=== PATIENT | female | born 1955 | race Asian ===

== ENCOUNTER → 2020-05-03 14:00 | Outpatient (CLI) | payer MEDICARE, OTHER, SELFPAY ==
[2020-05-04 09:43] LABS: COVID19 Sendout Not Detected (Not Detect)
== END ==
PROVIDERS: Visit Provider Nurse Practitioner
DX: Z11.59 Encounter for screening for other viral diseases (principal)
CPT/HCPCS: 87635

== ENCOUNTER 2020-05-06 06:10 | Day surgery (SDC) | payer MEDICARE, OTHER, SELFPAY ==
[2020-05-04 12:54] VITALS: BMI 24.0
[2020-05-06] VITALS (9 sets, daily range): BP systolic 101–135; BP diastolic 54–81; PULSE 67–83; RESP 14–18; TEMP 36.1–37.2; O2SAT 96–100; BMI 23.3
[2020-05-06] MEDS: LACTATED RINGERS 1,000 ML 100 ML IV (07:09)
--- NOTE | 2020-05-06 07:30 | PM.PREOP ---
Pre-operative Note COVID-19 COVID-19 status: Negative Interval Note History & Physical reviewed/Exam performed by Physician: Yes Changes to H&P: No
--- NOTE | 2020-05-06 07:31 | PM.OP.1 ---
Operative Date/Time/Diagnoses Date of procedure: 05/06/20 Time of procedure: 07:31 Pre-op diagnosis: Left hallux abductovalgus with painful bunion Post-op diagnosis: same Procedure & Clinicians Procedure: Left first metatarsophalangeal joint arthrodesis Same procedure as scheduled: Yes Indications: Painful hypermobile left great toe joint with bunion. Conservative measures failed to alleviate her pain and she wished to have surgical intervention at this time. We spoke of the alternatives, risks, potential complications, and expected outcomes. Consent was signed, no contraindications to the procedure at this time. Surgeon: Marilee Farris Click Yes if Unassisted: Yes Anesthesia Type: Spinal and Local Operative Notes Closure Type: primary Specimen(s): none sent Applied: implant(s) ([place] 5 degree 1st MTP plate, 4.0 cannulated screw, 2.7 x 4 screws (1 non-locking, 3 locking)) Estimated Blood Loss (mL): 20 Blood products transfused: none Tourniquet time (min): 58 Procedure in detail: The patient was brought to the operating room and placed on the operating table seated. Anesthesia rendered a spinal anesthesia. She was then placed in the supine position. A tourniquet was placed about the patient's left thigh. After induction of sedation, the foot and ankle were prepped and draped in the usual aseptic manner. The tourniquet was inflated. Incision was made over the dorsal aspect of the left 1st metatarsophalangeal joint. The incision was deepened through subcutaneous tissues being careful to identify and retract all vital neurovascular structures. All bleeders were cauterized and ligated necessary. The capsule was opened to an enlarged medial eminence of the 1st metatarsal head. A saw was used to resect the medial eminence enlargement as well as some of the more prominent areas of spurring at the 1st metatarsophalangeal joint. The joint showed loss of the articular cartilage on the plantar medial 1st metatarsal head near the sesamoid area. A guidewire was placed in the 1st metatarsal head and a reamer was used to resect the cartilage from the 1st metatarsal head and prepare the joint. The same procedure was performed to the proximal phalanx base. These guidewires were then removed. Subchondral drilling was performed to either side with the guidewire as well as some fish scaling using a rongeur. The area was irrigated with copious amount of normal sterile saline. Temporary fixation across the joint was placed with a guidewire and this was checked under C-arm to be in appropriate alignment. A plate was chosen and any further reduction of prominences dorsally was performed with a rasp and rongeur. Using the aid of fluoroscopy, the guide wire was used as cannulation for the drill for a lag screw from the distal medial to proximal lateral 1st metatarsal phalangeal joint. Confirmed appropriate in all 3 planes, a partially threaded screw was placed and the guidewire removed. Good strength and reduction of the former joint. Plate was placed (5 degree was chosen to fit the best with her joint) and with the aid of fluoroscopy a series of locking screws and a nonlocking screw were placed across the plate and steadied the joint well. This was checked on C-arm. The area is irrigated with copious amounts normal sterile saline. The tourniquet was deflated and prompt hyperemic response was seen to the foot. And no motion was noted at the 1st MTPJ. Subcutaneous closure was performed using Vicryl and nylon was used to close the skin. A sterile lightly compressive dressing was placed on the foot and he was placed in her postoperative boot. She was transferred to the PACU with vital signs stable and vascular status intact. Complications: none Post-operative Condition: stable Disposition: PACU Plan for aftercare: Following a period of postoperative monitoring, the patient be discharged home on written and oral postoperative instructions including keeping the dressing dry and intact, non-weightbearing to the foot, icing and elevating the foot when seated home. DVT prevention techniques have been reviewed. For the 1st postoperative visit the dressing will be changed and close to the 4th postoperative week we will likely have our first x-rays.
[2020-05-06] MEDS: CEFAZOLIN 2 GM/100 ML FROZ.PIGGY IV (07:33)
[2020-05-06] MEDS: BUPIVACAINE 0.5% (PF) VIAL 30 ML INJ (08:22)
--- NOTE | 2020-05-06 11:26 | SUR.PHASEII ---
PT was wheeled to the Bathroom with bed, but unable to stand on own legs, buckled under own weight. A wheel chair and gait belt was used to transfer to the Bathroom. PT failed to have a BM but Voided. PT says that she has pressure in her abdomen. PT got dressed in the bathroom with the help of a [employer] and the assistance of a gait belt. PT was successful on getting dressed on own but needed help standing and transferring to wheel chair.
--- NOTE | 2020-05-06 11:53 | SUR.PHASEII ---
Assisted patient to bathroom via wheelchair. Patient is now able to bear some weight on her operative leg. Patient denies pain at this time. Instructed patient to pull the call light when ready to leave the bathroom. Patient v/u.
--- NOTE | 2020-05-06 14:42 | SUR.PHASEII ---
Late entry: Pt ready to go, d/c instructions discussed by Susan and given to pt by Susan. 1200 pt stated she wanted to go home, full strength has returned to legs, pt left unit in stable condition.
== END 2020-05-06 12:15 | disposition home or self-care (01) ==
PROVIDERS: Referring Provider Podiatrist; Visit Provider Podiatrist
PROC: (CPT 28750; principal; 2020-05-06 07:45)
DX: M20.12 Hallux valgus (acquired), left foot (principal); J45.909 Unspecified asthma, uncomplicated
CPT/HCPCS: 28750; J0690; J1100; J2250; J2405; J2704; J3010